=== PATIENT | female | born 1960 | race Caucasian/White ===

== ENCOUNTER → 2017-03-23 | Outpatient (CLI) | payer BC, OTHER ==
[~2017-03-23] MED LIST: CRESTOR20 MG PO; UNICOMPLEX M TA1 TA1 PO
== END ==
LOC: RAD 08:34
DX: Z12.31 Encounter for screening mammogram for malignant neoplasm of breast (principal)

== ENCOUNTER → 2017-04-01 | Outpatient (CLI) | payer BC, OTHER | LOC: RAD 01:48 → ULTRA 09:54 → RAD 09:59 | DX: N63.10 Unspecified lump in the right breast, unspecified quadrant (principal); R92.8 Other abnormal and inconclusive findings on diagnostic imaging of breast ==

== ENCOUNTER → 2017-07-03 | Outpatient (CLI) | payer BC, OTHER ==
[~2017-07-03] VITALS: Ht 167.6 cm; Wt 47.6 kg
--- NOTE | ~2017-07-03 | CATHLAB ---
[facility] [address] [place] [address] INVASIVE PROCEDURE REPORT Name: ALONSO WEST [id number] Admission: 07/03/17 Attend Phys: Ulysses Tavera Discharge: Date of : 64 Date of Service: 07/03/17 1500 Report #: [id number] THIS REPORT FOR: //name// APPROVED REPORT Study performed: 07/03/2017 10:35:36 Patient Details Patient Status: Out-Patient Room #: The patient is a 57 year-old female Event Personnel Ulysses Dale Art Supervisor, Guy Henao RN RN, Khushboo Pineda RTR, Kira Johnston Amber Monitor Procedures Performed Art Access - R femoral artery* [id number] Initial Mod Sed Same Phys/QHP Gr5y [id number] Left Heart Cath w/or w/o Coronaries [id number] [facility] Hemostasis with Manual pressure Indication Chest pain Procedure Narrative The patient was brought electively to the Cardiac Catheterization Laboratory and was prepped and draped in a sterile manner. The Right Groin^ was infiltrated with 1% Lidocaine subcutaneous anesthesia. A PINNACLE 4FR Sheath #[id number] sheath was inserted into the RFA^. Coronary angiography was performed using coronary diagnostic catheters. The right coronary system was accessed and visualized with a JR 4 catheter. The left coronary system was accessed and visualized with a JL 4 catheter. The left ventricle was accessed and visualized with a JR 4 catheter. Left ventricular/Aortic Valve gradient assessed via catheter pullback. Hemostasis was obtained with manual pressure following sheath removal without any complications. The patient tolerated the procedure well and there were no complications associated with the procedure. There was no hematoma. Intraoperative Conscious Sedation Sedation start time: 10:52 Case end Time: 11:14 Versed 3 mg Fluoro Time: 1.53 minutes Dose: DAP 863.20 cGycm2 125 mGy [facility] [email or web address] [address] INVASIVE PROCEDURE REPORT Name: ALONSO WEST Room #: REG [facility]#: [id number] Admission: 07/03/17 Attend Phys: Ulysses Tavera Discharge: Date of : 64 Date of Service: 07/03/17 [facility] Report #: [id number] Contrast Type and Amount: Omnipaque 55 ml Coronary Angiography The patient's coronary anatomy is right dominant. Diagnostic Cath Left Main Normal origin and caliber a long in length bifurcates left anterior descending ramus intermedius and left circumflex vessels. Free of high-grade disease LAD Small-caliber vessel of normal origin with luminal irregularities present. It tapers rapidly in his distal third in a tortuous course terminating as a small string-like vessel at the apex Diagonal 1 Moderate caliber vessel with mild less than 40% lesion at its origin and luminal irregularities of 30% throughout its course no high-grade obstructive lesions Diagonal 2 Small-caliber vessel without significant high-grade lesions noted Circumflex Small-caliber vessel with proximal irregularities of 20-30% noted. He gives rise to a lateral wall marginal branch or tapers rapidly towards the apex with only luminal irregularities present Right Coronary Normal origin moderate caliber vessel which has luminal irregularities throughout its proximal course. At the acute margin gives rise to 2's small caliber RV marginal branches. The RCA continues posteriorly to the crux of the heart where moderate caliber posterior descending artery originates. The distal circulation is terminated by a trifurcation including an artery to the AV node without significant high-grade lesions present R PDA Moderate caliber vessel free of high-grade obstructive lesions Ramus Left ramus is a small caliber vessel which proximal irregularities of 20-30% no significant flow-limiting lesions noted Left Ventriculography Left Ventriculography was not performed. Hemodynamics The aortic pressure is 137/81 mmHg with a mean of 97 mmHg. The left ventricular pressure is 142/10 mmHg with a mean of mmHg. The left ventricular end diastolic pressure is 27 mmHg. Conclusion 1. Coronary artery disease consisting of mild plaquing in the epicardial coronary arteries [facility] [address] [place] [address] INVASIVE PROCEDURE REPORT Name: ALONSO WEST Room #: REG CL Jeyson#: [id number] Admission: 07/03/17 Attend Phys: Ulysses Tavera Discharge: Date of : 64 Date of Service: 07/03/17 1500 Report #: [id number] 2. Normal hemodynamics Recommendations Cardiac Risk Reduction Program <ELECTRONICALLY SIGNED> By: Ulysses Dale MD 07/03/171499 1500 99 Ulysses Dale MD /INF
[2017-07-03 09:40] VITALS: BP 125/63
[2017-07-03 10:05] LABS: HEMATOCRIT 41.1 % (37.0-47.0); HEMOGLOBIN 13.7 gm/dL (12.0-15.0); MCH 30.7 pg (26.0-34.0); MCHC 33.4 g/dL (28.0-37.0); MCV 91.9 fL (80.0-100.0); RBC 4.47 mil/uL (4.20-5.00); RDW 14.1 % (10.5-14.5); WBC 9.4 thou/uL (4.0-11.0)
[2017-07-03 10:16] LABS: CALCIUM 8.8 mg/dL (8.5-10.1); CREATININE 0.7 mg/dL (0.6-1.0); POTASSIUM 3.9 mmol/L (3.5-5.1)
[2017-07-03 10:17] LABS: PROTIME 10.5 Seconds (9.3-11.4)
== END | disposition home or self-care (01) ==
LOC: CATH 09:24
PROVIDERS: Internal Medicine
DX: I25.10 Atherosclerotic heart disease of native coronary artery without angina pectoris (principal); E78.5 Hyperlipidemia, unspecified; F17.210 Nicotine dependence, cigarettes, uncomplicated; Z98.890 Other specified postprocedural states; Z82.49 Family history of ischemic heart disease and other diseases of the circulatory system; Z79.899 Other long term (current) drug therapy